=== PATIENT | female | born 1960 | race Two or more races ===

== ENCOUNTER 2018-01-28 09:47 | Outpatient (CLI) | payer OTHER | END 2018-01-28 09:49 | disposition home or self-care (01) | LOC: RAD 09:47 → MAMO-SONO 10:15 | DX: E66.01 Morbid (severe) obesity due to excess calories (principal); D25.1 Intramural leiomyoma of uterus; D50.1 Sideropenic dysphagia; G47.33 Obstructive sleep apnea (adult) (pediatric); E78.2 Mixed hyperlipidemia; I10 Essential (primary) hypertension; E11.40 Type 2 diabetes mellitus with diabetic neuropathy, unspecified; E11.65 Type 2 diabetes mellitus with hyperglycemia; Z68.42 Body mass index [BMI] 45.0-49.9, adult; E11.36 Type 2 diabetes mellitus with diabetic cataract; G47.30 Sleep apnea, unspecified; G40.209 Localization-related (focal) (partial) symptomatic epilepsy and epileptic syndromes with complex partial seizures, not intractable, without status epilepticus ==

== ENCOUNTER 2024-12-01 06:00 | Day surgery (SDC) | payer OTHER ==
[2024-11-25 12:11] VITALS: BP 150/74
[~2024-12-01] VITALS: Ht 167.6 cm; Wt 59.9 kg
[~2024-12-01 06:00] MED LIST: SYNTHROID75 MCG PO
[2024-12-01] MEDS ORDERED: CEFAZOLIN SODIUM 1,000 MG VIAL ONE (07:07)
[2024-12-01] MEDS ORDERED: BUPIVACAINE HCL/Mpf 0.5% 10ML VIAL ONE (07:07)
[2024-12-01] MEDS ORDERED: LIDOCAINE HCL 1%/EPINEPHRINE 20ML VIAL IJ ONE (07:07)
[2024-12-01] MEDS ORDERED: LIDOCAINE HCL 1% 20 ML VIAL IJ ONE (07:29)
== END 2024-12-01 10:05 | disposition home or self-care (01) ==
LOC: CIR.AMB 06:00
PROVIDERS: ATTEND Surgery Surgery of the Hand
DX: M65.841 Other synovitis and tenosynovitis, right hand (principal)